=== PATIENT | male | born 1970 ===

== ENCOUNTER → 2017-02-09 | Outpatient (CLI) | payer BC ==
[2017-02-07 09:09] VITALS: BMI 52.1
[~2017-02-09] MED LIST: ASPI-816 PO; CETI-176 PO; CHOL10005 PO; FEXO-72 PO; GLUC-125 PO; HYDR-2966 PO; LEVO5TAB28 PO; LOR1 PO; LOSA100T67 PO; METH54TA12 PO; MULT1TAB64 PO
== END ==
LOC: AMB 13:26
PROVIDERS: ATTEND Nurse Practitioner
DX: Z96.653 Presence of artificial knee joint, bilateral (principal)
CPT/HCPCS: A0425; A0428